=== PATIENT | male | born 1985 | race Caucasian/White ===

== ENCOUNTER 2018-05-06 08:33 | Emergency (ER) | payer BC ==
[2018-05-06] MEDS ORDERED: Albuterol/Ipratropium 3.0-0.5 MG/3 ML Neb Soln NEB ONE ×2 (08:49→10:42)
--- NOTE | 2018-05-06 08:53 | EDM.PDOC ---
ED HPI GENERAL MEDICAL PROBLEM - General Chief Complaint: Chest Pain Stated Complaint: [facility] CHEST PAIN Time Seen by Provider: 05/06/18 08:49 Source of Information: Reports: Patient, EMS History Limitations: Reports: No Limitations - History of Present Illness INITIAL COMMENTS - FREE TEXT/NARRATIVE: 32-year-old male brought to the ED per local ambulance. Apparently he was in the workplace when he developed sudden onset of severe right sided parasternal sharp stabbing chest pain with a strongly pleuritic component. He states he felt a heaviness in his right side of his chest last night with no associated cough. Cough develop this morning. He states he is bringing up some sputum but did not comment on color. Denies any hemoptysis. Treated him with a dose of albuterol. They found his O2 sats to be relatively low this morning at 88%. Was placed on oxygen at 2 L en route to the hospital. Here on room air he is 98%. His hands may have been quite cold and therefore the pulse oximetry was not accurate this morning. Taking shallow respirations or splinting on the right side. Afebrile at this time. 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 He did not feel he was working all that hard. Note his weight is a little over 400 pounds. Onset: Today Onset Date: 05/06/18 Onset Time: 08:10 Duration: Minutes:, Other (Pain is improved since) Location: Reports: Chest (Right upper anterior chest.) Quality: Reports: Ache, Sharp, Stabbing, Other Severity: Moderate (Pleuritic component to the pain. Pain rated as 8 or 9 out of 10.) Improves with: Reports: Other (Better with rest and after albuterol treatment.) Worsens with: Reports: Other (Deep breathing and coughing make it worse) Context: Reports: Other (Sharp stabbing pleuritic chest pain came on while at work this morning. 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 States he was exposed to some harsh chemicals this morning.). Denies: Activity, Exercise, Lifting, Sick Contact, Trauma Associated Symptoms: Reports: Chest Pain, Cough, cough w sputum (See history of present illness), Shortness of Breath. 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 (Albuterol 1 by paramedics.) Right Chest Pain Score (Numeric/FACES): 7 - Related Data Allergies Allergy/AdvReac Type Severity Reaction Status Date / Time No Known Allergies Allergy Verified 05/06/18 08:38 Home Meds: Home Meds Diclofenac Sodium [Voltaren] 50 mg PO TID #24 tab.ec 05/06/18 [Rx] oxyCODONE HCl/Acetaminophen [Percocet 5-325 mg Tablet] 1 - 2 each PO Q4H PRN # 14 tablet 05/06/18 [Rx] predniSONE [Deltasone] 20 mg PO BID #12 tablet 05/06/18 [Rx] Past Medical History - Past Health History Medical/Surgical History: Denies Medical/Surgical History Social & Family History - Tobacco Use Smoking Status *Q: Never Smoker - Caffeine Use Caffeine Use: Reports: None - Recreational Drug Use Recreational Drug Use: No - Living Situation & Occupation Occupation: Employed ED ROS GENERAL - Review of Systems Review Of Systems: See Below Constitutional: Reports: Malaise, Weakness, Fatigue. Denies: Fever, Chills HEENT: Reports: No Symptoms Respiratory: Reports: Shortness of Breath, Wheezing, Pleuritic Chest Pain ( Wheezing appreciated by recreational therapist staff.), Cough (Strong component of right parasternal pleuritic chest pain worsened by cough and deep breathing.), Sputum. Denies: Hemoptysis Cardiovascular: Reports: Chest Pain, Dyspnea on Exertion. Denies: Blood Pressure Problem, Claudication (See history present illness), Edema, Lightheadedness, Orthopnea Endocrine: Reports: No Symptoms GI/Abdominal: Reports: No Symptoms : Reports: No Symptoms Musculoskeletal: Reports: No Symptoms Skin: Reports: No Symptoms Neurological: Reports: No Symptoms Psychiatric: Reports: No Symptoms Hematologic/Lymphatic: Reports: No Symptoms ED EXAM, GENERAL - Physical Exam Exam: See Below Exam Limited By: No Limitations General Appearance: Alert, WD/WN, Mild Distress, Other (Mildly apprehensive. O2 sats are now 97-98% on room air. Resting tachycardia of 10 3/m. Afebrile temperature 36.3.) Eye Exam: Bilateral Eye: Normal Inspection Ears: Normal TMs Throat/Mouth: Normal Inspection, Normal Lips, Normal Teeth, Normal Oropharynx Head: Atraumatic, Normocephalic Neck: Normal Inspection, Supple, Non-Tender, Full Range of Motion. No: Lymphadenopathy (L), Lymphadenopathy (R) Respiratory/Chest: Decreased Breath Sounds (Decreased breath sounds to the lower lung cantu bilaterally due to shallow inspiration.), Wheezing (Few expiratory wheezes bilaterally.), Splinting (Taking slow deep breaths and splinting.). No: Normal Breath Sounds Cardiovascular: Normal Peripheral Pulses, Regular Rate, Rhythm, No Edema, No Gallop, No Murmur, No Rub, Tachycardia (Tachycardia at rest 10 3/m.) Peripheral Pulses: 3+: Radial (L), Radial (R) GI/Abdominal: Normal Bowel Sounds, Soft, Non-Tender, No Organomegaly, No Abnormal Bruit, No Mass, Pelvis Stable, Other (Patient is morbidly obese. 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 There is early R-wave transition in V2 V3 and severe right ventricular hypertrophy versus septal hypertrophy pattern.) ST-T: Other (Diffuse T-wave abnormalities V3 to V6 also in leads 23 and aVF with T-wave flattening and inversion. Nonspecific findings) QT: Prolonged (Moderately prolonged) EKG Interpretation Comments: Abnormal ECG Course - Vital Signs Last Recorded V/S: Last Vital Signs Temp 36.3 C 05/06/18 08:34 Pulse 103 H 05/06/18 08:34 Resp 16 05/06/18 08:34 BP 132/67 05/06/18 08:34 Pulse Ox 95 05/06/18 10:42 - Orders/Labs/Meds Orders: Active Orders 24 hr Category Date Time Status EKG Documentation Completion [RC] STAT Care 05/06/18 08:52 Active RT Aerosol Therapy [RC] ASDIRECTED Care 05/06/18 08:49 Active RT Aerosol Therapy [RC] ASDIRECTED Care 05/06/18 10:42 Active RT Post Treatment Assessment [RC] Click to Edit Care 05/06/18 11:37 Active RT Pre-Treatment Assessment [RC] Click to Edit Care 05/06/18 11:37 Active Ketorolac [Toradol] Med 05/06/18 09:00 Active 30 mg IVPUSH ONETIME Sodium Chloride 0.9% [Normal Saline] 1,000 ml Med 05/06/18 09:00 Active IV ASDIRECTED Medication Orders Sodium Chloride (Normal Saline) 1,000 mls @ 125 mls/hr IV ASDIRECTED ESTELA Last Admin: 05/06/18 09:28 Dose: 125 mls/hr Ketorolac Tromethamine (Toradol) 30 mg IVPUSH ONETIME ESTELA Last Admin: 05/06/18 09:29 Dose: 30 mg Labs: Laboratory Tests 05/06/18 05/06/18 05/06/18 Range/Units 09:32 09:32 09:32 WBC 6.49 (4.23-9.07) K/mm3 RBC 5.26 (4.63-6.08) M/mm3 Hgb 14.6 (13.7-17.5) gm/L Hct 44.8 (40.1-51.0) % MCV 85.2 (79.0-92.2) fl MCH 27.8 (25.7-32.2) pg MCHC 32.6 (32.2-35.5) g/dl RDW Std Deviation 45.2 H (35.1-43.9) fL Plt Count 220 (163-337) K/mm3 MPV 10.0 (9.4-12.3) fl Neutrophils % (Manual) 56 (40-60) % Band Neutrophils % 0 (0-10) % Lymphocytes % (Manual) 37 (20-40) % Atypical Lymphs % 0 % Monocytes % (Manual) 5 (2-10) % Eosinophils % (Manual) 2 (0.8-7.0) % Basophils % (Manual) 0 L (0.2-1.2) Platelet Estimate Adequate RBC Morph Comment Normal PT 10.6 (9.5-12.1) SECONDS INR 0.97 APTT 29 (24-31) SECONDS D-Dimer, Quantitative 0.35 (0.19-0.50) mg/L Sodium 141 (136-145) mEq/L Potassium 3.3 L (3.5-5.1) mEq/L Chloride 106 (98-107) mEq/L Carbon Dioxide 24 (21-32) mEq/L Anion Gap 14.3 (5-15) BUN 11 (7-18) mg/dL Creatinine 1.1 (0.7-1.3) mg/dL Est Cr Clr Drug Dosing 106.80 mL/min Estimated GFR (MDRD) > 60 (>60) mL/min BUN/Creatinine Ratio 10.0 L (14-18) Glucose 122 H (74-106) mg/dL Calcium 9.4 (8.5-10.1) mg/dL Magnesium (1.8-2.4) mg/dl Total Bilirubin 0.6 (0.2-1.0) mg/dL AST 89 H (15-37) U/L ALT 84 H (16-63) U/L Alkaline Phosphatase 74 (46-116) U/L CK-MB (CK-2) 14.3 H (0-3.6) ng/ml Troponin I < 0.017 (0.00-0.056) ng/mL C-Reactive Protein 1.4 H* (<1.0) mg/dL NT-Pro-B Natriuret Pep (0-125) pg/mL Total Protein 7.2 (6.4-8.2) g/dl Albumin 3.8 (3.4-5.0) g/dl Globulin 3.4 gm/dL Albumin/Globulin Ratio 1.1 (1-2) 05/06/18 05/06/18 Range/Units 09:32 09:32 WBC (4.23-9.07) K/mm3 RBC (4.63-6.08) M/mm3 Hgb (13.7-17.5) gm/L Hct (40.1-51.0) % MCV (79.0-92.2) fl MCH (25.7-32.2) pg MCHC (32.2-35.5) g/dl RDW Std Deviation (35.1-43.9) fL Plt Count (163-337) K/mm3 MPV (9.4-12.3) fl Neutrophils % (Manual) (40-60) % Band Neutrophils % (0-10) % Lymphocytes % (Manual) (20-40) % Atypical Lymphs % % Monocytes % (Manual) (2-10) % Eosinophils % (Manual) (0.8-7.0) % Basophils % (Manual) (0.2-1.2) Platelet Estimate RBC Morph Comment PT (9.5-12.1) SECONDS INR APTT (24-31) SECONDS D-Dimer, Quantitative (0.19-0.50) mg/L Sodium (136-145) mEq/L Potassium (3.5-5.1) mEq/L Chloride (98-107) mEq/L Carbon Dioxide (21-32) mEq/L Anion Gap (5-15) BUN (7-18) mg/dL Creatinine (0.7-1.3) mg/dL Est Cr Clr Drug Dosing mL/min Estimated GFR (MDRD) (>60) mL/min BUN/Creatinine Ratio (14-18) Glucose (74-106) mg/dL Calcium (8.5-10.1) mg/dL Magnesium 2.0 (1.8-2.4) mg/dl Total Bilirubin (0.2-1.0) mg/dL AST (15-37) U/L ALT (16-63) U/L Alkaline Phosphatase (46-116) U/L CK-MB (CK-2) (0-3.6) ng/ml Troponin I (0.00-0.056) ng/mL C-Reactive Protein (<1.0) mg/dL NT-Pro-B Natriuret Pep 26 (0-125) pg/mL Total Protein (6.4-8.2) g/dl Albumin (3.4-5.0) g/dl Globulin gm/dL Albumin/Globulin Ratio (1-2) Meds: Medications Generic Name Dose Route Start Last Admin Trade Name Freq PRN Reason Stop Dose Admin Sodium Chloride 1,000 mls @ 125 mls/hr 05/06/18 09:00 05/06/18 09:28 Normal Saline IV 125 mls/hr ASDIRECTED ESTELA Administration Ketorolac Tromethamine 30 mg 05/06/18 09:00 05/06/18 09:29 Toradol IVPUSH 30 mg ONETIME ESTELA Administration Discontinued Medications Generic Name Dose Route Start Last Admin Trade Name Milagro PRN Reason Stop Dose Admin Albuterol 8.5 gm 05/06/18 11:35 05/06/18 12:05 Proventil Hfa INH 05/06/18 11:36 2 puff ONETIME ONE Administration Albuterol/Ipratropium 3 ml 05/06/18 08:49 05/06/18 08:58 Duoneb 3.0-0.5 Mg/3 Ml NEB 05/06/18 08:50 3 ml ONETIME ONE Administration Albuterol/Ipratropium 3 ml 05/06/18 10:42 05/06/18 11:16 Duoneb 3.0-0.5 Mg/3 Ml NEB 05/06/18 10:43 3 ml ONETIME ONE Administration Hydromorphone HCl 1 mg 05/06/18 10:36 05/06/18 10:48 Dilaudid IVPUSH 05/06/18 10:37 1 mg ONETIME ONE Administration Methylprednisolone Sodium Succinate 125 mg 05/06/18 10:36 05/06/18 10:49 Solu-Medrol IVPUSH 05/06/18 10:37 125 mg ONETIME ONE Administration Ondansetron HCl 4 mg 05/06/18 10:36 05/06/18 10:47 Zofran IVPUSH 05/06/18 10:37 4 mg ONETIME ONE Administration - Radiology Interpretation Free Text/Narrative:: 32-year-old male presents to the ED per ambulance. Patient states he did not feel well last night but had no trouble sleeping. He awoke this morning with a mild productive cough. Denies any hemoptysis. 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 He states for a while he could not get his breath. The embolus was summoned and identified him to be hypoxic on their assessment at 88 % on room air. He was placed on oxygen 2 L/m and given albuterol treatment because of audible wheezing. To help his shortness of breath but he still has pleuritic chest pain on arrival. Taking shallow breaths at the time of examination with splinting. Does have bilateral mild expiratory wheezes. Afebrile at this time. Plan he will be left up off of the oxygen. He will receive a DuoNeb treatment. He will have ECG and chest x-ray carried out as well as routine labs including a d-dimer. Will be given Toradol 30 mg IV for pleuritic chest pain - Re-Assessments/Exams Free Text/Narrative Re-Assessment/Exam: 05/06/18 09:42 chest x-ray done portably. Shows slight prominence of the right pulmonary artery and perhaps some very mild diffuse vascular congestion pattern. Cardiac Silhouette is normal .There are no infiltrates within either lung no pneumothorax. 05/06/18 10:10 White count is 6.49 with differential pending. Hemoglobin is 14.6 with hematocrit of 44.8. Platelet count is 220,000. PT is 10.6 with an INR of 0.97. PTT is 29 with a d-dimer of 0.35 normal. Sodium 141 with potassium slightly low at 3.3. Chloride is 106 with a bicarbonate of 24. And a gap is 14.3. BUN is 11 with a creatinine of 1.1. EGFR is greater than 60 Glucose is 122. Calcium is 9.4 liver function reveals slightly elevated AST at 89 and ALT of 84. Likely due to underlying fatty liver disease. CK-MB fraction is 14.3 troponin I is less than 0.017. C-reactive protein is mildly elevated at 1.4. Total protein is 7.2 with an albumin fraction of 3.8. 05/06/18 10:32 Differential on the white count is 56% neutrophils and no band cells with 37% lymphocytes. 05/06/18 10:35 on reexamination patient is coughing proximal his bili. Not bringing up much sputum. He appreciates that he is wheezing worse bilaterally. Still having pleuritic chest pain which he rates 6 out of 10. It appears that he has a viral respiratory tract infection with pleuritic component. Will give him Dilaudid 1 mg IV for further pain relief. Will also give him Solu-Medrol 125 mg IV. 05/06/18 11:30: Doing better. Still has some pleuritic component to pain but not near as often. Still aggravated by cough again sputum is sparse. I will have RT come and teach him how to use an albuterol handheld inhaler. He will use 2 puffs every 3 hours needed for cough relief and/or wheezing. Be discharged home on prednisone 20 mg twice a day for the next 6 days. Percocet tabs 5/325 one or 2 every 4-6 hours for pain not controlled by Voltaren 50 mg 3 times daily. 14 tablets provided. Note given to excuse him from work for the next 3 days. He is to follow-up in clinic or return to the ED if not markedly improved in 72 hours.. Departure - Departure Time of Disposition: 11:38 Disposition: Home, Self-Care 01 Condition: Fair Clinical Impression: Viral upper respiratory tract infection with cough, Bronchitis - Discharge Information *PRESCRIPTION DRUG MONITORING PROGRAM REVIEWED*: Not Applicable *COPY OF PRESCRIPTION DRUG MONITORING REPORT IN PATIENT BRANT: Not Applicable Prescriptions: Diclofenac Sodium [Voltaren] 50 mg PO TID #24 tab.ec oxyCODONE HCl/Acetaminophen [Percocet 5-325 mg Tablet] 1 - 2 each PO Q4H PRN # 14 tablet PRN Reason: pain relief. predniSONE [Deltasone] 20 mg PO BID #12 tablet Instructions: Upper Respiratory Infection, Adult, [id number], Acute Bronchitis, Adult Referrals: PCP,None [Primary Care Provider] - Forms: ED Department Discharge, ED Return to Work/School Form Additional Instructions: Evaluation in the emergency room today in regards to development of very strong pleuritic sharp stabbing chest pain right upper anterior chest. This occasional radial pincher right neck as well. Diffuse wheezing evident. Mild productive cough. No significant fever. White blood cell count is also the normal range indicating this is a viral infection. Chest x-ray was also negative for any pneumonia. No blood clots or heart related issues were identified. Treatment was pain medication and anti-inflammatory medication in the ED with Solu-Medrol 125 mg and Toradol 30 mg IV and Dilaudid 1 mg IV with Zofran 4 mg IV. Been at home is prednisone 20 mg twice daily for 6 days with the next tablet due at suppertime tonight. Use Voltaren 50 mg 3 times daily with the first tablet due when you pick him up today. First one tonight before bed. Pain tablets Percocet 5/325 mg one or 2 every 4-6 hours needed for pain not controlled by anti-inflammatories alone. Usually the anti-inflammatories will take a day and a half to start to work well. Use albuterol 2 puffs every 3 hours as needed for relief of asthma and/or cough. Given to excuse her from the work place for the next 3 days. Follow-up in clinic or return to the ED if not markedly improved in 72 hours time - My Orders Last 24 Hours: My Active Orders 05/06/18 08:49 RT Aerosol Therapy [RC] ASDIRECTED 05/06/18 08:52 EKG Documentation Completion [RC] STAT 05/06/18 09:00 Ketorolac [Toradol] 30 mg IVPUSH ONETIME Sodium Chloride 0.9% [Normal Saline] 1,000 ml IV ASDIRECTED 05/06/18 10:42 RT Aerosol Therapy [RC] ASDIRECTED 05/06/18 11:37 RT Post Treatment Assessment [RC] Click to Edit RT Pre-Treatment Assessment [RC] Click to Edit - Assessment/Plan Last 24 Hours: My Active Orders 05/06/18 08:49 RT Aerosol Therapy [RC] ASDIRECTED 05/06/18 08:52 EKG Documentation Completion [RC] STAT 05/06/18 09:00 Ketorolac [Toradol] 30 mg IVPUSH ONETIME Sodium Chloride 0.9% [Normal Saline] 1,000 ml IV ASDIRECTED 05/06/18 10:42 RT Aerosol Therapy [RC] ASDIRECTED 05/06/18 11:37 RT Post Treatment Assessment [RC] Click to Edit RT Pre-Treatment Assessment [RC] Click to Edit
[2018-05-06] MEDS ORDERED: Ketorolac 30 MG/ML SDV IVPUSH SCH (09:00)
[2018-05-06] MEDS ORDERED: Sodium Chloride 0.9% 1,000 ML IV SCH (09:00)
--- NOTE | 2018-05-06 10:16 | CR ---
Chest: Portable view of the chest was obtained. Comparison: No prior chest x-ray. Heart size and mediastinum are normal. Lungs are clear. Bony structures are grossly intact. Impression: 1. Nothing acute is seen on portable chest x-ray. Diagnostic code #1
[2018-05-06] MEDS ORDERED: HYDROmorphone 1 MG/ML Syringe IVPUSH ONE (10:36)
[2018-05-06] MEDS ORDERED: methylPREDNISolone Sodium Succinate 125 MG/2 ML SDV IVPUSH ONE (10:36)
[2018-05-06] MEDS ORDERED: Ondansetron 4 MG/2 ML SDV IVPUSH ONE (10:36)
[2018-05-06] MEDS ORDERED: Albuterol 6.7 GM Inhaler INH ONE (11:35)
== END 2018-05-06 12:33 | disposition home or self-care (01) ==
LOC: JD.ED 08:33
DX: J40 Bronchitis, not specified as acute or chronic (principal); J06.9 Acute upper respiratory infection, unspecified
CPT/HCPCS: 36415; 71045; 80053; 82553; 83735; 83880; 84484; 85007; 85027; 85379; 85610; 85730; 86140; 93005; 94640; 96361; 96374; 96375; 99285; A9270; J1170; J1885; J2405; J2930; J7040; 93010; 99284; J7620-GY